=== PATIENT | female | born 1970 | race Caucasian/White ===

== ENCOUNTER 2019-07-11 16:44 | Emergency (ER) | payer SELFPAY ==
[~2019-07-11] VITALS: Ht 157.5 cm; Wt 70.3 kg
--- NOTE | 2019-07-11 16:57 | NUR ---
Dr. Spears at the bedside for MSE.
--- NOTE | 2019-07-11 17:05 | NUR ---
Patient discharged to home in stable conditon. Written and verbal after care instructions given. Patient verbalizes understanding of instructions.
[2019-07-11] MEDS ORDERED: THYROID MEDICINE PO (17:12)
== END 2019-07-11 17:05 | disposition home or self-care (01) ==
LOC: ER 16:47
DX: M79.662 Pain in left lower leg (principal); V43.52XA Car driver injured in collision with other type car in traffic accident, initial encounter; Y93.89 Activity, other specified; Y92.410 Unspecified street and highway as the place of occurrence of the external cause; Y99.8 Other external cause status
CPT/HCPCS: A4663